=== PATIENT | female | born 2000 | race African-American/Black ===

== ENCOUNTER 2022-04-09 10:30 | Observation (INO) | payer MEDICAID, OTHER | END 2022-04-09 12:55 | disposition home or self-care (01) | LOC: 8 EST A/PP 10:30 | PROVIDERS: ADMIT Obstetrics & Gynecology; ATTEND Obstetrics & Gynecology | DX: O30.103 Triplet pregnancy, unspecified number of placenta and unspecified number of amniotic sacs, third trimester (principal); O09.623 Supervision of young multigravida, third trimester; Z3A.32 32 weeks gestation of pregnancy | CPT/HCPCS: 59025; 76805; 76810; G0378; 99281; G0379 ==